=== PATIENT | female | born 1980 | race Caucasian/White ===

== ENCOUNTER 2017-02-04 11:28 | Emergency (ER) | payer MEDICAID ==
[~2017-02-04] VITALS: Ht 165.1 cm; Wt 80.0 kg
[~2017-02-04 11:28] MED LIST: CEPH500C3 PO; SULF1TAB47 PO; Z.0.NO CURRENT MEDS
[2017-02-04 11:34] VITALS: BP 123/79; PULSE 61; RESP 16; TEMP 98.3; O2SAT 100
--- NOTE | 2017-02-04 11:58 | PD ---
HPI Chief Complaint: Abdominal Pain Time Seen by Provider: 11:38 Travel History International Travel<30 days: No Contact w/Intl Traveler<30days: No Traveled to known affect area: No History of Present Illness HPI This is a 36-year-old female who presents to the emergency department with years of right sided abdominal pain, intermittent, moderate severity, worse with intercourse, improved with rest. She occasionally has some nausea with it. She denies any current fevers or chills. She says the pain is currently absent. She went to a new primary care physician 4 days ago and he sent her to the emergency department to have her pain evaluated. She said she tried to explain to him that her pain was nonacute by he insisted that she come. She says he wanted some sort of ultrasound. She denies any vaginal bleeding, or discharge. The pain is not changed in several years. PFSH Past Medical History Hx Anticoagulant Therapy: No Asthma: Yes Diminished Hearing: No Tetanus Vaccination: < 5 Years Influenza Vaccination: No ?: Not : 2 Para: 4 Tubal Ligation: Yes (2005) Past Surgical History Gynecologic Surgery: Yes (TUBAL LIGATION) Social History Alcohol Use: No Tobacco Use: Yes (10/15 PPD) Substance Use: Yes (THC) Allergies-Medications (Allergen,Severity, Reaction): Coded Allergies: No Known Allergies (Verified , 02/04/17) Reported Meds & Prescriptions Reported Meds & Active Scripts Active No Active Prescriptions or Reported Medications Review of Systems Except as stated in HPI: all other systems reviewed are Neg Physical Exam Narrative GENERAL: Well-appearing, no acute distress, nontoxic SKIN: Warm and dry. HEAD: Atraumatic. Normocephalic. ENT: No nasal bleeding or discharge. Moist mucous membranes Abdomen: Mildly tender to palpation in the epigastrium and suprapubic region with no rebound or guarding MUSCULOSKELETAL: No obvious deformities. No clubbing. No cyanosis. No edema. NEUROLOGICAL: Awake and alert. No obvious cranial nerve deficits. Motor grossly within normal limits. Normal speech. PSYCHIATRIC: Appropriate mood and affect; insight and judgment normal. Data Data Last Documented VS Vital Signs Date Time Temp Pulse Resp B/P Pulse Ox O2 Delivery O2 Flow Rate FiO2 02/04/17 11:34 98.3 61 16 123/79 100 MDM Medical Decision Making Medical Screen Exam Complete: Yes Emergency Medical Condition: Yes Interpretation(s) Afebrile, no tachycardia, normotensive Differential Diagnosis Cholelithiasis, ovarian cyst, malignancy, gastritis Narrative Course This is a 36-year-old female who presents to the emergency department with subacute abdominal pain that's been going on for years. She is nontoxic appearing, afebrile and has no active vomiting and her pain is very minimal. I don't think the emergency department is the best place to have this evaluated. She likely needs a right upper quadrant ultrasound as an outpatient to evaluate for symptomatic cholelithiasis and likely requires follow-up with an [employer]. I discussed this with the patient and I provided her with an outpatient gallbladder ultrasound script. Patient will be discharged home to follow-up with her primary care physician. Diagnosis Primary Impression: Chronic abdominal pain Patient Instructions: General Instructions Additional Instructions: If you develop severe or worsening abdominal pain, fever>100.4, persistent vomiting or inability to eat or drink return to the emergency department immediately. Follow up with your primary care physician in 1-2 days for a check-up. Follow up with [facility] at: Follow up with: [facility] [address] [place] [address] Office Hours Saturday - 9:00 am - 5:30 pm Saturday 8:00 am - 12:00 pm Tuesdays 4:00 - 6:30 pm Med/Other Pt SpecificInfo: No Change to Meds Scripts No Active Prescriptions or Reported Meds Disposition: DISCHARGE HOME Condition: Stable Karli Campos MD Feb 04, 2017 11:58
== END 2017-02-04 12:18 | disposition home or self-care (01) ==
LOC: PHED 11:28
DX: R10.9 Unspecified abdominal pain (principal); G89.29 Other chronic pain; J45.909 Unspecified asthma, uncomplicated; F17.210 Nicotine dependence, cigarettes, uncomplicated; F12.90 Cannabis use, unspecified, uncomplicated
CPT/HCPCS: 99283

== ENCOUNTER 2017-10-09 17:33 | Emergency (ER) | payer MEDICAID ==
[~2017-10-09] VITALS: Ht 165.1 cm; Wt 78.5 kg
[2017-10-09 17:42] VITALS: BP 118/56; PULSE 69; RESP 16; TEMP 98.3; O2SAT 100
[2017-10-09] MEDS ORDERED: BACI500O9 TOPICAL (18:41)
--- NOTE | 2017-10-09 18:41 | PD ---
HPI Chief Complaint: Burn Time Seen by Provider: 18:26 Travel History International Travel<30 days: No Contact w/Intl Traveler<30days: No Traveled to known affect area: No History of Present Illness HPI 37 -year-old female secondary to her left wrist injury occurred while at work yesterday when hot water spilled onto her wrist. Severity is mild. No aggravating or alleviating factors. Reports normal sensation and strength of the wrist and digits. Denies any other injuries. PFSH Past Medical History Hx Anticoagulant Therapy: No Asthma: Yes Diminished Hearing: No ?: Not LMP: 10/07/17 : 2 Para: 4 Tubal Ligation: Yes (2005) Past Surgical History Gynecologic Surgery: Yes (TUBAL LIGATION) Social History Alcohol Use: No Tobacco Use: Yes (10/15 PPD) Substance Use: Yes (THC) Allergies-Medications (Allergen,Severity, Reaction): Coded Allergies: No Known Allergies (Verified Adverse Reaction, Unknown, 10/09/17) Reported Meds & Prescriptions Reported Meds & Active Scripts Active No Active Prescriptions or Reported Medications Review of Systems Except as stated in HPI: all other systems reviewed are Neg General / Constitutional: No: Fever Physical Exam Narrative GENERAL: Alert female. Well-appearing. SKIN: Approximately 6X1 cm linear second-degree burn on the dorsal aspect of left wrist. The area is blanchable. HEAD: Normocephalic. EYES: No scleral icterus. No injection or drainage. NECK: Supple, trachea midline. No JVD or lymphadenopathy. MUSCULOSKELETAL: No cyanosis, or edema. See skin noted above. Patient has full range of motion and normal sensation of the left upper extremity. Data Data Last Documented VS Vital Signs Date Time Temp Pulse Resp B/P (MAP) Pulse Ox O2 Delivery O2 Flow Rate FiO2 10/09/17 17:42 98.3 69 16 118/56 (76) 100 MDM Medical Decision Making Medical Screen Exam Complete: Yes Emergency Medical Condition: Yes Differential Diagnosis Burn, wound infection, cellulitis Narrative Course 37-year-old female with a small second-degree burn to the left upper extremity. Diagnosis Primary Impression: Burn Referrals: Primary Care Physician Scripts Bacitracin Topical (Bacitracin Topical) 500 Unit/Gm Oint 1 APPLIC TOPICAL DAILY for Infection, #30 GM 0 Refills Prov: Heidi Bolanos 10/09/17 Disposition: 01 DISCHARGE HOME Condition: Stable Heidi Bolanos Oct 09, 2017 18:41
== END 2017-10-09 18:52 | disposition home or self-care (01) ==
LOC: PHED 17:33 → PHEFT 18:52
DX: T23.272A Burn of second degree of left wrist, initial encounter (principal); J45.909 Unspecified asthma, uncomplicated; F17.200 Nicotine dependence, unspecified, uncomplicated; X12.XXXA Contact with other hot fluids, initial encounter
CPT/HCPCS: 99283

== ENCOUNTER 2018-02-20 10:06 | Emergency (ER) | payer MEDICAID ==
[~2018-02-20] VITALS: Ht 165.1 cm; Wt 78.4 kg
[~2018-02-20 10:06] MED LIST changes: +BACI500O9 TOPICAL; -CEPH500C3 PO; -SULF1TAB47 PO; -Z.0.NO CURRENT MEDS
[2018-02-20 10:10] VITALS: BP 146/73; PULSE 81; RESP 18; TEMP 97.8; O2SAT 99
--- NOTE | 2018-02-20 11:25 | PD ---
HPI Chief Complaint: Dizziness Time Seen by Provider: 11:23 Travel History International Travel<30 days: No Contact w/Intl Traveler<30days: No Traveled to known affect area: No History of Present Illness HPI This 37-year-old female is complaining of dizziness. She has been having this for the past week or so. It is aggravated by any movement of the head. She had some ringing in her ears this morning. She has not had any fever or chills. She felt like she is going to pass out while she was working. She is on no medications. She did vomit this morning and said there was just a trace of blood in the vomitus. She is generally healthy on no medications PFSH Past Medical History Medical History: Denies Significant Hx Hx Anticoagulant Therapy: No Asthma: Yes Diminished Hearing: No Influenza Vaccination: No ?: Not LMP: 02/2018 : 2 Para: 4 Tubal Ligation: Yes (2005) Past Surgical History Gynecologic Surgery: Yes (TUBAL LIGATION) Social History Alcohol Use: No Tobacco Use: Yes (10/15 PPD) Substance Use: Yes (THC) Allergies-Medications (Allergen,Severity, Reaction): Coded Allergies: No Known Allergies (Verified Adverse Reaction, Unknown, 02/20/18) Reported Meds & Prescriptions Reported Meds & Active Scripts Active No Active Prescriptions or Reported Medications Review of Systems General / Constitutional: No: Fever, Chills Eyes: No: Diploplia HENT: Positive: Vertigo, Lightheadedness Cardiovascular: No: Chest Pain or Discomfort, Palpitations Respiratory: No: Cough, Shortness of Breath Gastrointestinal: No: Nausea Genitourinary: No: Urgency, Frequency Skin: No Rash, No Itching Neurologic: Positive: Weakness Endocrine: No: Heat Intolerance Physical Exam Narrative GENERAL: Well-developed female SKIN: Focused skin assessment warm/dry. HEAD: Atraumatic. Normocephalic. EYES: Pupils equal and round. No scleral icterus. No injection or drainage. ENT: No nasal bleeding or discharge. Mucous membranes pink and moist. NECK: Trachea midline. No JVD. CARDIOVASCULAR: Regular rate and rhythm. No murmur appreciated. RESPIRATORY: No accessory muscle use. Clear to auscultation. Breath sounds equal bilaterally. GASTROINTESTINAL: Abdomen soft, non-tender, nondistended. Hepatic and splenic margins not palpable. MUSCULOSKELETAL: No obvious deformities. No clubbing. No cyanosis. No edema. NEUROLOGICAL: Awake and alert. No obvious cranial nerve deficits. Motor grossly within normal limits. Normal speech. PSYCHIATRIC: Appropriate mood and affect; insight and judgment normal. Data Data Last Documented VS Vital Signs Date Time Temp Pulse Resp B/P (MAP) Pulse Ox O2 Delivery O2 Flow Rate FiO2 02/20/18 10:17 16 02/20/18 10:10 97.8 81 146/73 (97) 99 Orders Orders Electrocardiogram (02/20/18 11:23) Complete Blood Count With Diff (02/20/18 11:23) Basic Metabolic Panel (Bmp) (02/20/18 11:23) Meclizine (Antivert) (02/20/18 11:30) Labs Laboratory Tests Test 02/20/18 11:30 White Blood Count 8.1 TH/MM3 Red Blood Count 4.33 MIL/MM3 Hemoglobin 11.9 GM/DL Hematocrit 36.6 % Mean Corpuscular Volume 84.5 FL Mean Corpuscular Hemoglobin 27.3 PG Mean Corpuscular Hemoglobin Concent 32.4 % Red Cell Distribution Width 13.4 % Platelet Count 248 TH/MM3 Mean Platelet Volume 9.5 FL Neutrophils (%) (Auto) 62.1 % Lymphocytes (%) (Auto) 31.5 % Monocytes (%) (Auto) 4.8 % Eosinophils (%) (Auto) 1.2 % Basophils (%) (Auto) 0.4 % Neutrophils # (Auto) 5.0 TH/MM3 Lymphocytes # (Auto) 2.6 TH/MM3 Monocytes # (Auto) 0.4 TH/MM3 Eosinophils # (Auto) 0.1 TH/MM3 Basophils # (Auto) 0.0 TH/MM3 CBC Comment DIFF FINAL Differential Comment Blood Urea Nitrogen 13 MG/DL Creatinine 0.58 MG/DL Random Glucose 92 MG/DL Calcium Level 8.5 MG/DL Sodium Level 141 MEQ/L Potassium Level 4.4 MEQ/L Chloride Level 108 MEQ/L Carbon Dioxide Level 29.8 MEQ/L Anion Gap 3 MEQ/L Estimat Glomerular Filtration Rate 118 ML/MIN [facility] Medical Decision Making Medical Screen Exam Complete: Yes Emergency Medical Condition: Yes Medical Record Reviewed: Yes Differential Diagnosis Differential includes vertigo, labyrinthitis, anemia, electrolyte imbalance Narrative Course Work is unremarkable. Patient reports some improvement with Antivert. She will be released with prescription for Antivert Diagnosis Primary Impression: Vertigo Scripts Meclizine (Meclizine) 25 Mg Tab 25 MG PO TID Y for VERTIGO, #20 TAB 0 Refills Prov: Moustapha Sanders MD 02/20/18 Disposition: 01 DISCHARGE HOME Condition: Stable Moustapha Sanders MD February 20, 2018 11:25
[2018-02-20] MEDS ORDERED: MECLIZINE HCL 25 MG TAB PO ONE (11:30)
[2018-02-20 11:40] LABS: BASOPHIL % 0.4 % (0.0-2.0); EOSINOPHIL # 0.1 TH/MM3 (0-0.4); EOSINOPHIL % 1.2 % (0.0-4.0); HEMATOCRIT 36.6 % (35.0-46.0); HEMOGLOBIN 11.9 GM/DL (11.6-15.3); LYMPH % 31.5 % (9.0-44.0); LYMPHOCYTE # 2.6 TH/MM3 (1.0-4.8); MEAN CELL VOLUME 84.5 FL (80.0-100.0); MEAN CORPUSCULAR HEMOGLOBIN 27.3 PG (27.0-34.0); MEAN CORPUSCULAR HGB CONC 32.4 % (32.0-36.0); MEAN PLATELET VOLUME 9.5 FL (7.0-11.0); MONO % 4.8 % (0.0-8.0); MONOCYTE # 0.4 TH/MM3 (0-0.9); NEUT % 62.1 % (16.0-70.0); PLATELET COUNT 248 TH/MM3 (150-450); RED BLOOD COUNT 4.33 MIL/MM3 (4.00-5.30); RED CELL DISTRIBUTION WIDTH 13.4 % (11.6-17.2); WHITE BLOOD COUNT 8.1 TH/MM3 (4.0-11.0)
[2018-02-20 11:55] LABS: BICARBONATE 29.8 MEQ/L (21.0-32.0); CALCIUM 8.5 MG/DL (8.5-10.1)
[2018-02-20 11:59] LABS: CREATININE 0.58 MG/DL (0.50-1.00)
[2018-02-20 12:41] VITALS: BP 116/72
[2018-02-20] MEDS ORDERED: MECL-62 PO (12:42)
--- NOTE | 2018-02-22 08:51 | EKG ---
Date Performed: 02/20/2018 Time Performed: 11:27:53 PTAGE: 37 years EKG: Sinus rhythm NORMAL ECG NO PREVIOUS TRACING DOCTOR: Katarzyna Luna Interpretating Date/Time 02/22/2018 08:47:32
== END 2018-02-20 12:47 | disposition home or self-care (01) ==
LOC: PHED 10:06
DX: R42 Dizziness and giddiness (principal); J45.909 Unspecified asthma, uncomplicated; F17.200 Nicotine dependence, unspecified, uncomplicated
CPT/HCPCS: 80048; 85025; 93005; 99284